=== PATIENT | female | born 1950 | race Caucasian/White ===

== ENCOUNTER 2018-04-18 10:32 | Inpatient (IN) | payer BC, MEDICARE ==
[~2018-04-18 10:32] MED LIST: MORPHINE SULFATE 15 MG TABLET.SA PO PRN; ROPIVACAINE HCL/PF 100 MG, EPINEPHrine 0.2 MG, KETOROLAC TROMETHAMINE 30 MG in NORMAL S... IJ PRN; TRANEXAMIC ACID 1,000 MG in NORMAL SALINE 100 ML IV PRN; ceFAZolin SODIUM 1 GM VIAL IV PRN
[2018-04-18] MEDS: RINGER'S SOLUTION,LACTATED 1,000 ML IV PRN ×2 (11:30→13:21)
--- NOTE | 2018-04-18 11:42 | ANES ---
Anesthesia Pre Procedure Eval Vitals/Labs: Last Vital Signs Temp 36.9 C 04/18/18 10:47 Pulse 81 04/18/18 10:47 Resp 16 04/18/18 10:47 BP 174/75 H 04/18/18 10:47 Pulse Ox 96 04/18/18 10:47 HOME MEDICATIONS Felodipine [Felodipine ER] 10 mg PO HS 08/14/14 [Last Taken Unknown] Venlafaxine HCl [Effexor Xr] 75 mg PO DAILY 08/14/14 [Last Taken Unknown] LORazepam [Ativan] 0.5 mg PO DAILY 10/11/17 [Last Taken Unknown] irbesartan 300 mg tablet 300 mg PO DAILY 02/24/18 [Last Taken 04/18/18 07:00] multivitamin tablet 1 tab PO DAILY 02/24/18 [Last Taken Unknown] spironolactone 25 mg tablet 25 mg PO DAILY 02/24/18 [Last Taken Unknown] venlafaxine ER 150 mg capsule,extended release 24 hr 150 mg PO DAILY 02/24/18 [Last Taken Unknown] esomeprazole magnesium 40 mg capsule,delayed release 40 mg PO DAILY #90 cap 04/12/18 [Last Taken 04/18/18 07:00] [place]-3 Fatty Acids/Fish Oil [Fish Oil 1,000 mg Capsule] 1 each PO DAILY 04/18/18 [Last Taken Unknown] Allergies/Adverse Reactions: Allergies Allergy/AdvReac Type Severity Reaction Status Date / Time No Known Allergies Allergy Verified 04/11/18 14:50 - Planned Procedure Planned Procedure: Arthroplasty Total Hip Left Medication List Reviewed:: Yes Allergies Verified: Yes Medical History (Last Reviewed 04/18/18 @ 11:36 by Hieu Bartlett CRNA) Anxiety and depression Onset Date: Unknown DDD (degenerative disc disease), lumbar Onset Date: Unknown GERD (gastroesophageal reflux disease) Onset Date: Unknown Hip pain Onset Date: ~01/2018 left Hypertension Onset Date: 1997 ELO treated with BiPAP Onset Date: 12/30/15 Obesity Onset Date: Unknown Osteoarthritis Onset Date: Unknown Shoulder pain, right Onset Date: Unknown h/o manipulation under anesthesia Onset Date: 05/22/14 left knee Surgical History (Last Reviewed 04/18/18 @ 11:36 by Hieu Bartlett CRNA) History of right knee joint replacement H/O colonoscopy Onset Date: Unknown Waqas H/O total knee replacement Onset Date: ~201403/18/15 left knee Claudette 2006 right Philip History of gastric surgery Onset Date: ~10/2016 excision of nonmalignant tumor S/P ATILIO (total abdominal hysterectomy) Onset Date: 1983 + RSO (endometriosis) Family History (Last Reviewed 04/18/18 @ 11:36 by Hieu Bartlett CRNA) Father CHF (congestive heart failure) Mother TIA (transient ischemic attack) PE (pulmonary thromboembolism) - Family Anesthesia History Family History:: no untoward family reactions to anesthesia, no familial bleeding tendencies, no family history of clotting disorders, no family history of premature - Airway/Neck/Teeth Within Normal Limits:: Yes Teeth Condition: intact Neck Exam: full range of motion - small os Mallampatti Score: 3 Thyromental (T-M) distance: > 6 cm Mandibulo Hyoid distance: > 3 cm - Respiratory Respiratory History: sleep apnea, CPAP/BiPAP home use Respiratory Physical: lungs clear Smoking Status: Former smoker - quit 82 Discussed smoking cessation including day of surgery: No Sleep Apnea currently treated: Yes Sleep Apnea by current assessment: Yes Discussed Risks/Treatment of ELO: Yes - Cardiovascular Cardiac History: hypertension Tolerate Activity: Fair Heart Sounds: S1 & S2, Regular - Anesthesia Assessment and Plan ASA Class: PS, II Anesthesia Type Plan: General ET Planned difficult intubation/equipment available: Yes
[2018-04-18] MEDS ORDERED: ZOLPIDEM TARTRATE 5 MG TABLET PO PRN (14:27)
[2018-04-18] MEDS ORDERED: MAG HYDROX/ALUMINUM HYD/SIMETH 30 ML UDC PO PRN (14:27)
[2018-04-18] MEDS ORDERED: MAGNESIUM HYDROXIDE 30 ML UDC PO PRN (14:27)
[2018-04-18] MEDS ORDERED: diphenhydrAMINE HCL 50 MG/ML VIAL IV PRN (14:27)
[2018-04-18] MEDS ORDERED: MORPHINE SULFATE 2 MG/ML DISP.SYRIN IV PRN (14:27)
[2018-04-18] MEDS ORDERED: ONDANSETRON HCL/PF 2 MG/ML VIAL IV PRN (14:27)
[2018-04-18] MEDS ORDERED: ACETAMINOPHEN 500 MG TABLET PO PRN (14:27)
--- NOTE | 2018-04-18 14:32 | OR ---
Operative Report - Dictated Report Narrative: Date: 04/18/2018 Preoperative diagnosis: Left hip degenerative joint disease. Postoperative diagnosis: Left hip degenerative joint disease. Procedure: Left Total hip arthroplasty. Surgeon: Moy Wilkins M.D. Cloth Reeler: Lefty Green PA-C (provided an essential set of skilled, educated and assisted with transfer, positioning, prepping, draping, manipulation, traction, irrigation, suturing, and placement of dressings all of which cannot be performed by the available surgical crew) Anesthesia: General and local periarticular joint injection. Complications: None Specimens: Bone for disposal. Estimated blood loss: 250 milliliters. Retained implants: Depuy [place] size 5 femoral stem standard offset. Size 54 millimeter outside diameter 3-hole [place] Gription acetabular cup. 54 millimeter outside by 36 millimeter inside diameter highly cross-linked acetabular liner. 36 millimeter diameter +12 millimeter ceramic femoral head. Cancellous 6.5mm screw 30 millimeter length Indications: Mrs. Sky is a 67-year-old female who has had long-standing left hip pain and arthrosis. This patient was followed in my clinic for period of time with significant complaints of left hip pain consistent with arthritic changes. She failed conservative measures including but not limited to activity modification, passage of time, medications, and other conservative measures. Patient wished to proceed with surgical treatment. The risks, benefits, and alternatives were discussed in clinic. The risks of , blood clots, bleeding, infection, nerve/tendon blood vessel/ injury, malposition of components, dislocation and/or instability of joint, intraoperative fracture, postoperative limited range of motion, persistent pain, failure of components, and need for additional procedures. Patient wished to proceed. Consent was obtained after answering all questions. Procedure: After marking the correct extremity on the floor, the patient was taken to the operating room. A timeout was performed. IV antibiotics consisting of Ancef were administered prior to the procedure. A general was induced by anesthesia. A Arciniega catheter was inserted. The patient was then transitioned to a lateral position on a well-padded pegboard. An axillary roll was placed. The head was in neutral position. The non-operative down leg was well-padded with SCD and CHRISTIANO hose in place. The arms were supported and padded to protect from any undue pressure on the bony prominences and nerves. A well- padded anterior and posterior pelvic and chest posts were secured in order to maintain a stable position of the pelvis. This was placed so that the pelvis was perpendicular to the floor. The body was in line with the pelvis. Once it was felt that we had protected all the bony prominences and the patient was well secured with a safety belt as well, the leg was pre-scrubbed with alcohol, prepped and draped in a standard sterile fashion. A standard anterior lateral hip incision was marked out over the greater trochanter. [place] drapes were then placed. The skin incision was then made. Sharp dissection with a scalpel utilizing cautery for hemostasis was carried out down to the gluteus and iliotibial band fascia. This was split in line with the skin incision. The greater trochanter bursa was excised. The anterior and posterior margins of the abductor tendon were identified. The anterior 1/2-1/3 of the tendon was tagged and reflected off the greater trochanter leaving a sleeve of tendon for repair at the completion of the case. This exposed the underlying hip joint capsule. A limb length stitch was placed in the skin and referencedd off a shannen on the greater trochanter for evaluation of intraoperative limb lengths. An inverted T-type capsulotomy was made extending this up to the brim of the acetabulum. Using Homans to assist with elevation of the soft tissues off the anterior, superior, and inferior aspects of the femoral neck, the hip was then placed in a figure 4 position and the femoral head was dislocated. With the leg in an externally rotated and adducted position, the cutting flag was utilized in order to shannen for a standard femoral neck cut approximately a fingerbreadth above the level of the lesser trochanter. This was done with reference to pre-operative films and overall alignment. This was done while protecting the surrounding soft tissues with Homans. The femoral head was then removed and sized for guidance on preparation of the acetabulum. It was noted that there was loss of articular cartilage on both the femoral head and weightbearing portions of the acetabulum. We then returned the leg to the table and turned our attention to the acetabulum. While protecting the surrounding soft tissues, the labrum and remaining tissue in the fovea were excised using a scalpel and cautery. A series of reamers up t o size 54 millimeter were utilized to prepare the acetabulum. The final reamer had good purchase and exposed the bleeding subchondral bone. The acetabulum was then thoroughly irrigated ensuring that all bony and cartilaginous materials were removed, and the final acetabular shell was impacted into place. This was placed in approximately 45 degrees of abduction and 20 degrees of anteversion utilizing the outrigger and body axis for alignment. This had a good press fit. 1 6.5mm cancellous screw was placed in the superior posterior quadrant of the acetabulum. The shell was then thoroughly irrigated and the final polyethylene was impacted into place ensuring that it seated completely. This was then protected with a sponge while we returned our attention to the femur. With the leg in a figure 4 position, utilizing Homans for soft tissue protection, a box cutting osteotome, followed by Charnley awl, followed by serial reamers and broaches were utilized in order to prepare the femur. It was found that a size 5 broach gave good axial and rotational stability. The calcar reamer was utilized in order to clean up the cut edges. The proximal femur was visualized to ensure that there were no signs of fracture. A series of heads and necks were trialed. It was found that a standard offset neck and a + 12 femoral head gave good overall stability. There was minimal longitudinal in stability. With the leg in the position of sleep, the femoral head was well covered. Hip range of motion was able to reach full extension and external rotation to greater than 75 degrees prior to impingement along the posterior acetabulum. The hip was able to be flexed to greater than 90 degrees with internal rotation greater than 60 degrees prior to anterior impingement. The limb lengths were near equal based on comparison to the contralateral side and the prior placed limb length stitch. At this point it was felt these were the appropriately sized femoral components as well as neck and femoral head. The trial implants were removed. The femur was thoroughly irrigated. The final implants were impacted into place, and the hip was reduced. After ensuring that there was no damage to the proximal femur, the standard periarticular joint injection of ropivacaine, Toradol, and epinephrine were injected into the joint capsule and surrounding soft tissues. Anesthesia then administered intravenous tranexamic acid. The capsule was repaired with a single interrupted #1 Vicryl. The abductor tendon was repaired to the greater trochanter utilizing #5 [place] through drill holes. This was oversewn with #1 Vicryl. The fascia was closed with interrupted #1 Vicryl. The wounds were thoroughly irrigated as we closed in layers. The deep and subcutaneous fat layers were closed with 0 and 3-0 Vicryl respectively. The subcutaneous tissue was closed with a running 3-0 Vicryl and the skin with suleman. All sponge, needle, blade, and instrument counts were correct prior to closing the wounds. Sterile dressings consisting of Xeroform, 4 x 4's, and tape were applied. The patient was awoken and transferred to her hospital bed and then to the postanesthesia care unit in stable condition. Postoperative condition: The plan is to admit to the medical/surgical inpatient floor postoperatively. There will be a projected 1 to 3 day hospital stay. Postoperatively 24 hours of IV antibiotics, pain control, physical therapy, occupational therapy, and medical comanagement will be utilized. Patient will be weightbearing as tolerated with anterior hip precautions. Postoperative fi lms will be obtained in the recovery room.
--- NOTE | 2018-04-18 14:52 | ANES ---
Post Anesthesia Discharge - Transfer of Care Transfer of Care handoff given to nurse: Yes - Discharge from PACU Discharge from PACU when meets criteria: Yes - Comfortable in PACU.
[2018-04-18] MEDS ORDERED: HYDROmorphone HCL 1 MG/ML DISP.SYRIN IV PRN (15:08)
[2018-04-18] MEDS ORDERED: DILTIAZEM HCL 5 MG/ML VIAL IV ONE (15:51)
[2018-04-18] MEDS ORDERED: METOPROLOL TARTRATE 25 MG TABLET PO SCH (16:00)
[2018-04-18] MEDS: KETOROLAC TROMETHAMINE 15 MG/ML VIAL IV SCH ×2 (16:22→21:28)
[2018-04-18] MEDS: ceFAZolin SODIUM 1 GM in DEXTROSE 5 % IN WATER 100 ML IV SCH ×4 (16:32→21:29)
[2018-04-18] MEDS: DEXTROSE 5%-LACTATED RINGERS 1,000 ML IV PRN (16:33)
--- NOTE | 2018-04-18 16:36 | PN ---
Subjective - Date and Time Seen Date: 04/18/18 Time: 16:21 Subjective Narrative: I was called by Hieu Bartlett with anesthesia, because Nancy was in afib with RVR while in the PACU. She was in sinus rhythm during her surgery, and for several minutes afterwards, but flipped into afib with a rate up to 130. She was administered 5 mg lopressor, and her rate improved to the 110's for a few minutes, but then increased again to the 130's. While the cardizem was getting prepared, she converted to a regular rhythm with a rate in the 80's. She was assessed in the PACU. Objective - Review of Systems Generalized/Overall Review: Denies: Fever Respiratory: Denies: Cough Cardiac: Denies: Chest Pain, Edema Abdominal: Denies: Nausea - Vitals Vitals: Last Vital Signs Temp 36.5 C 04/18/18 16:10 Pulse 86 04/18/18 16:10 Resp 9 L 04/18/18 16:10 BP 135/63 04/18/18 16:10 Pulse Ox 94 04/18/18 16:10 - EKG/Xray Findings EKG: atrial fibrillation EKG read: Reviewed by me - Exam Constitutional: Present: Alert - drowsy post op Respiratory: Present: normal breath sounds, no respiratory distress Cardiovascular/Chest: Present: regular rate, rhythm - HR88 Cauti Physician Documentation - Urinary Catheter Management Urethral (Arciniega) Date of Insertion: 04/18/18 Time of Insertion: 12:10 Assessment/Plan - Problems/Diagnosis (1) Atrial fibrillation with RVR Problem: Resolved Narrative: Patient had a very brief episode post op, likely anesthesia related. Records review earlier today did not reveal previous episodes of dysrhythmias. Received 5 mg IV lopressor, and converted to NSR on the monitor, but confirmation EKG pending. Will administer 25 mg metoprolol tartrate bid, and reassess the need for rate control at follow up visit. Anticoagulation not needed since the episode was so brief.
--- NOTE | 2018-04-18 17:34 | ANES ---
Post Anesthesia Assessment - Vital Signs Vitals: Last Vital Signs Temp 36.3 C 04/18/18 16:46 Pulse 85 04/18/18 17:16 Resp 16 04/18/18 17:16 BP 151/77 H 04/18/18 17:16 Pulse Ox 94 04/18/18 17:16 Airway Patency: Normal - Mental Status Level Of Consciousness: Awake, Alert, Appropriate - Pain Level Pain Score: 4 - N/V Assessment Nausea/Vomiting Presence: None Dehydration:: No - Additional Notes Comments:: Had developed Afib in PACU which converted to SR rate 80s. Given Metoprolol PO in PACU and discharde to her room on telemetry. Dr Parks in consult during this period.
[2018-04-18] MEDS: oxyCODONE HCL/ACETAMINOPHEN 1 TAB TABLET PO PRN ×2 (18:00→23:49)
[2018-04-18] MEDS ORDERED: SENNOSIDES/DOCUSATE SODIUM 1 TAB TABLET PO SCH (21:00)
[2018-04-18] MEDS ORDERED: FELODIPINE 5 MG TAB.SR.24H PO SCH (21:00)
[2018-04-18] MEDS: MORPHINE SULFATE 15 MG TABLET.SA PO SCH (21:28)
[2018-04-19] MEDS: DEXTROSE 5%-LACTATED RINGERS 1,000 ML IV PRN (01:38)
[2018-04-19] MEDS: KETOROLAC TROMETHAMINE 15 MG/ML VIAL IV SCH ×2 (02:20→09:11)
[2018-04-19] MEDS: ceFAZolin SODIUM 1 GM in DEXTROSE 5 % IN WATER 100 ML IV SCH ×2 (03:44)
[2018-04-19 06:05] LABS: Hematocrit 37.1 % (37.0-47.0); Hemoglobin 11.8 gm/dL (12.5-16.0); Mean Cell Volume 88.8 fl (78-100); Mean Corpuscular Hemoglobin 28.2 pg (27-31); Mean Corpuscular Hgb Conc 31.8 g/dl (32-36); Mean Platelet Volume 9.5 fl (8-12.5); Platelet Count 308 K/mm3 (150-450); Red Blood Count 4.18 M/mm3 (4.2-5.4); Red Cell Distribution Width 14.7 % (11.5-14.0); White Blood Count 15.3 K/mm3 (4.0-10.5)
[2018-04-19 06:08] LABS: Anion Gap 8.5 mmol/L (6.8-13.8); BUN/Creatinine Ratio 19.2 (9.0-21.6); Calcium * 8.7 mg/dL (7.9-10.9); Carbon Dioxide 32.1 mmol/L (24-32.6); Estimated Creat Clear 72.5; Potassium 3.6 mmol/L (3.4-4.6)
[2018-04-19] MEDS ORDERED: PANTOPRAZOLE SODIUM 40 MG TABLET.EC PO SCH (07:00)
[2018-04-19] MEDS: oxyCODONE HCL/ACETAMINOPHEN 1 TAB TABLET PO PRN (07:12)
--- NOTE | 2018-04-19 07:56 | PN ---
Subjective - Date and Time Seen Date: 04/19/18 Time: 07:51 Subjective Narrative: Nursing reports no further episodes of afib, and she is doing well. She reports feeling fine, and feels well enough to go home. States she only uses xanax qhs, and has not used ambien. Objective - Review of Systems Generalized/Overall Review: Reports: No Symptoms Reported Cardiac: Denies: Chest Pain, Palpitations Abdominal: Denies: Nausea - Vitals Vitals: Last Vital Signs Temp 36.4 C 04/19/18 06:54 Pulse 95 04/19/18 06:54 Resp 16 04/19/18 06:54 BP 148/64 04/19/18 06:54 Pulse Ox 95 04/19/18 06:54 - Abnormal Lab Findings Abnormal Lab Findings: Abnormal Lab Results 04/19/18 04/19/18 Range/Units 05:00 05:00 WBC 15.3 H (4.0-10.5) K/mm3 RBC 4.18 L (4.2-5.4) M/mm3 Hgb 11.8 L (12.5-16.0) gm/dL MCHC 31.8 L (32-36) g/dl RDW 14.7 H (11.5-14.0) % Random Glucose 113 H (70-110) mg/dL - EKG/Xray Findings EKG: NSR EKG read: Reviewed by me - Exam Constitutional: Present: Alert, Oriented x3, Cooperative, No distress Respiratory: Present: lungs clear, normal breath sounds Cardiovascular/Chest: Present: regular rate, rhythm Cauti Physician Documentation - Urinary Catheter Management Urethral (Arciniega) Date of Insertion: 04/18/18 Time of Insertion: 12:10 Assessment/Plan - Problems/Diagnosis (1) Atrial fibrillation with RVR Problem: Resolved Narrative: She had one brief episode of afib with RVR in the PACU, and converted. She had been given 5 mg lopressor, and converted several minutes later. Whether she converted on her own or due to the medication is unknown. Afib has not recurred overnight. She was started on 25 mg metoprolol tartrate bid, and will continue until I see her in follow up in approximately 3-4 weeks. Anticoagulation not needed since the episode was so brief. Likely secondary to surgery and anesthesia.
[2018-04-19] MEDS ORDERED: LOSARTAN POTASSIUM 50 MG TABLET PO SCH (09:00)
[2018-04-19] MEDS ORDERED: MULTIVITAMINS 1 CAP CAPSULE PO SCH (09:00)
[2018-04-19] MEDS ORDERED: OMEGA-3 FATTY ACIDS 1 CAP CAPSULE PO SCH (09:00)
[2018-04-19] MEDS ORDERED: LORazepam 0.5 MG TABLET PO SCH (09:00)
[2018-04-19] MEDS ORDERED: METOPROLOL TARTRATE 25 MG TABLET PO SCH (09:00)
[2018-04-19] MEDS ORDERED: VENLAFAXINE HCL 37.5 MG CAP.SR.24H PO SCH (09:00)
[2018-04-19] MEDS ORDERED: SPIRONOLACTONE 25 MG TABLET PO SCH (09:00)
[2018-04-19] MEDS ORDERED: VENLAFAXINE HCL 150 MG CAP.SR.24H PO SCH (09:00)
[2018-04-19] MEDS: MORPHINE SULFATE 15 MG TABLET.SA PO SCH (09:09)
--- NOTE | 2018-04-19 12:02 | DS ---
(1) Status post total hip replacement, left Problem: Acute (2) Atrial fibrillation with RVR Problem: Resolved (3) Acute blood loss anemia Problem: Acute (4) GERD (gastroesophageal reflux disease) Problem: Chronic (5) Anxiety Problem: Chronic (6) Hyperlipemia Problem: Chronic Description of Stay: Mrs. Sky was admitted to the floor after undergoing left total hip arthroplasty. Tolerated this well. In the post operative recovery room she developed atrial fibrillation which resolved with medication and observation. She did not have any recurrent symptoms. She was followed by her primary care physician who placed her on metoprolol and was okay with her being monitored without full anticoagulation. Was admitted to the floor postoperatively for 24 hours of IV antibiotics, pain control, medical comanagement, and occupational and physical therapy. OT and PT were consulted to assist with activities of daily living and ambulation. Was made weightbearing as tolerated with anterior hip precautions. Pain was initially controlled with IV regimen. This was transitioned to oral once tolerating a by mouth intake. Was resumed on home diet and medications. Had a Arciniega catheter inserted and the operating room which was discontinued on postoperative day 1. Lovenox SCD and CHRISTIANO hose were utilized for DVT prophylaxis. Vital signs remained stable to the hospital course. Serial labs were obtained which showed a final hemoglobin of 11.8 grams. BMP was reviewed and was stable. Physical examination throughout the hospital course showed an extremity that had sensation that was intact to light touch, palpable pulses, a benign wound, motor intact to the toes, ankle, and knee. Once an oral pain regimen was tolerated and physical therapy goals were met, it was felt that they were stable for discharge to home. Instructions: Continue with weightbearing as tolerated and anterior hip precautions. Do not bathe or soak the wound. If there is any drainage from the wound keep the wound clean and dry and cover with dry gauze and tape. Change every 2-3 days as needed if there is any drainage. Cover wound while showering. Continue with physical therapy. Resume home diet. Report any fever over 101.5 Fahrenheit, uncontrolled pain, increased drainage, foul odor of drainage, new or increased calf pain or shortness of breath, or any other significant complaints. A 325mg dialy aspirin will be started after finishing anticoagulation if not allergic. Continue with CHRISTIANO hose on the operative extremity until instructed otherwise. No driving until instructed otherwise. Follow up in approximately 10-14 days. Procedures Performed: see notes below List Procedures: Left total hip arthroplasty, EKG Results and Findings: Lab Pending Results 04/19/18 05:00: WBC 15.3 H, RBC 4.18 L, Hgb 11.8 L, Hct 37.1, MCV 88.8, MCH 28.2, MCHC 31.8 L, RDW 14.7 H, Plt Count 308, MPV 9.5 04/19/18 05:00: Sodium 140, Plasma Sodium 140, Potassium 3.6, Chloride 103, Carbon Dioxide 32.1, Anion Gap 8.5, BUN 14, Creatinine 0.73, Est GFR (Non-Af Amer) 85, BUN/Creatinine Ratio 19.2, Random Glucose 113 H, Calcium 8.7 Discharge Location: Home Disposition: Home self-care Condition: Good Discharge Activity: Weight bearing, Other - anterior hip precautions no active abduction Discharge Diet: General/regular food Referrals: Jessica Parks DO [Primary Care Provider] - Additional Patient Instructions (free text): Physical Therapy at [facility] in [place] on April 21 at 1:00pm. Please fax PT order to them at [phone]. Follow up Orthopedic Dr Claudette neff on May at 10:45am. Prescriptions (Any new or edited meds): Enoxaparin Sodium [Lovenox] 40 mg SC Q24H #7 disp.syrin Metoprolol Tartrate [Lopressor] 25 mg PO BID #60 tablet Morphine Sulfate [Ms Contin] 15 mg PO Q12H #10 tablet.sa oxyCODONE HCL/ACETAMINOPHEN [Percocet 5 MG/325 MG] 2 tab PO Q4H PRN #60 tab PRN Reason: Moderate Pain (Pain Scale 4-6) Sennosides/Docusate Sodium [Senokot-S] 2 tab PO HS #60 tablet Complete Home Medications List: Complete Home Medication List: Felodipine [Felodipine ER] 10 mg PO HS 08/14/14 Venlafaxine HCl [Effexor Xr] 75 mg PO DAILY 08/14/14 LORazepam [Ativan] 0.5 mg PO DAILY 10/11/17 irbesartan 300 mg tablet 300 mg PO DAILY 02/24/18 multivitamin tablet 1 tab PO DAILY 02/24/18 spironolactone 25 mg tablet 25 mg PO DAILY 02/24/18 venlafaxine ER 150 mg capsule,extended release 24 hr 150 mg PO DAILY 02/24/18 esomeprazole magnesium 40 mg capsule,delayed release 40 mg PO DAILY #90 cap 04/12/18 [place]-3 Fatty Acids/Fish Oil [Fish Oil 1,000 mg Capsule] 1 each PO DAILY 04/18/18 Enoxaparin Sodium [Lovenox] 40 mg SC Q24H #7 disp.syrin 04/19/18 Metoprolol Tartrate [Lopressor] 25 mg PO BID #60 tablet 04/19/18 Morphine Sulfate [Ms Contin] 15 mg PO Q12H #10 tablet.sa 04/19/18 Sennosides/Docusate Sodium [Senokot-S] 2 tab PO HS #60 tablet 04/19/18 oxyCODONE HCL/ACETAMINOPHEN [Percocet 5 MG/325 MG] 2 tab PO Q4H PRN #60 tab 04/19/18
[2018-04-19 13:02] VITALS: BP 167/80
[2018-04-19] MEDS ORDERED: ENOXAPARIN SODIUM 40 MG/0.4 ML SYRG SC SCH (13:27)
== END 2018-04-19 13:15 | disposition home or self-care (01) | DRG 470 ==
LOC: MS 10:32
PROVIDERS: ADMIT Orthopaedic Surgery; ATTEND Orthopaedic Surgery
CPT/HCPCS: 36415; 73502; 80048; 85027; 90686; 93005; 94660; 97161; 97166; 97535

== ENCOUNTER 2018-05-23 15:42 | Inpatient (IN) ==
[2018-05-23] MEDS ORDERED: NITROGLYCERIN 0.4 MG/TAB BTL SL ONE ×3 (17:02→18:41)
[2018-05-23] MEDS ORDERED: ASPIRIN 81 MG TAB.CHEW PO ONE (17:02)
[2018-05-23] MEDS ORDERED: DILTIAZEM HCL 5 MG/ML VIAL IV ONE ×2 (17:03→18:40)
[2018-05-23 17:11] LABS: Hematocrit 41.2 % (37.0-47.0); Mean Cell Volume 85.8 fl (78-100); Mean Corpuscular Hemoglobin 27.1 pg (27-31); Mean Corpuscular Hgb Conc 31.6 g/dl (32-36); Mean Platelet Volume 9.8 fl (8-12.5); Neutrophil # 8.6 K/mm3 (1.3-6.0); Neutrophil % 68.6 % (42-75.0); Platelet Count 357 K/mm3 (150-450); Red Cell Distribution Width 14.4 % (11.5-14.0); White Blood Count 12.5 K/mm3 (4.0-10.5)
--- NOTE | 2018-05-23 17:12 | ERNOTE ---
<Mary Olivarez - Last Filed: 05/23/18 20:28> Abdominal HPI - General Chief Complaint: Abdominal Pain Time Seen by Provider: 05/23/18 16:55 Source: patient Exam Limitations: no limitations - Immun/Allergies/Home Medications Immunizatons: IMMUNIZATION HX Immunizations Up to Date Yes History of Influenza Vaccine Yes Hx Pneumococcal Vaccination No Allergies/Adverse Reactions: Allergies No Known Allergies Allergy (Verified 05/23/18 23:55) Home Medications: HOME MEDICATIONS Felodipine [Felodipine ER] 10 mg PO HS 08/14/14 [Last Taken Unknown] Venlafaxine HCl [Effexor Xr] 75 mg PO DAILY 08/14/14 [Last Taken Unknown] irbesartan 300 mg tablet 300 mg PO DAILY 02/24/18 [Last Taken 04/18/18 07:00] multivitamin tablet 1 tab PO DAILY 02/24/18 [Last Taken Unknown] spironolactone 25 mg tablet 25 mg PO DAILY 02/24/18 [Last Taken Unknown] venlafaxine ER 150 mg capsule,extended release 24 hr 150 mg PO DAILY 02/24/18 [Last Taken Unknown] esomeprazole magnesium 40 mg capsule,delayed release 40 mg PO DAILY #90 cap 04/12/18 [Last Taken 04/18/18 07:00] [place]-3 Fatty Acids/Fish Oil [Fish Oil 1,000 mg Capsule] 1 ea PO DAILY 04/18/18 [Last Taken Unknown] Metoprolol Tartrate [Lopressor] 25 mg PO BID #60 tab 04/19/18 [Last Taken Unknown] Alprazolam [Xanax] 0.25 mg PO PRN PRN 05/23/18 [Last Taken Unknown] Aspirin 325 mg PO QAM 05/23/18 [Last Taken Unknown] - History of Present Illness Narrative: Patient had a hip replacement on 04/18/18. According to her friend she had two episodes of atrial fibrillation while in recovery, was on lovenox for 7 days, on [id number] since. Over the last three weeks she has had intermittent episodes of central chest pressure that usually lasted about an hour and seem to resolve with nexium. Since last night she has had symptoms that have not quit, doesn't feel palpitations, shortness of breath with exertion only. She quit the ASA a week ago since she thought it might be causing the symptoms Date (Duration): 05/22/18 Time (Timing): 19:00 Timing: constant Quality: moderate Activities at Onset: none Associated Symptoms: Present: shortness of breath Prior Treatment: Absent: currently on antibiotics Review of Systems - Review of Systems Constitutional: Present: recent illness - surgery. Absent: fever Respiratory: Present: See HPI, shortness of breath. Absent: cough Cardiology: Present: See HPI, chest pain Gastrointestinal/Abdominal: Present: nausea, diarrhea - twice last night. Absent: vomiting Genitourinary: Present: no symptoms reported Skin: Absent: rash Neurological: Absent: headache Medical History (Last Reviewed 05/23/18 @ 18:09 by Mary Olivarez MD) Anxiety and depression Onset Date: Unknown DDD (degenerative disc disease), lumbar Onset Date: Unknown GERD (gastroesophageal reflux disease) Onset Date: Unknown Hip pain Onset Date: ~01/2018 left Hypertension Onset Date: 1997 ELO treated with BiPAP Onset Date: 12/30/15 Obesity Onset Date: Unknown Osteoarthritis Onset Date: Unknown Shoulder pain, right Onset Date: Unknown h/o manipulation under anesthesia Onset Date: 05/22/14 left knee Surgical History: Surgical History (Last Reviewed 05/23/18 @ 18:09 by Mary Olivarez MD) Status post total hip replacement, left (Chronic) 04/18/18 [place] H/O colonoscopy Onset Date: Unknown [place] H/O total knee replacement Onset Date: ~201403/18/15 left knee [place] 2006 right [place] History of gastric surgery Onset Date: ~10/2016 excision of nonmalignant tumor History of right knee joint replacement S/P ATILIO (total abdominal hysterectomy) Onset Date: 1983 RSO (endometriosis) History of total left hip arthroplasty Onset Date: ~04/18/18 Dr Wilkins Family History: Family History (Last Reviewed 05/23/18 @ 17:31 by Shima Mc RN) Father CHF (congestive heart failure) Mother TIA (transient ischemic attack) PE (pulmonary thromboembolism) Social History: Preferred Language Samoan Do you have any anabaptist or No cultural preference? Smoking Status Former smoker Abuse History No History of abuse Psych History Hx of Anxiety,Currently on Meds Alcohol Use none Drug Use none (Last Updated 05/05/18 @ 11:54 by Moy Wilkins MD) No Social History Section defined Physical Exam - Physical Exam General Appearance: Present: wd/wn, alert, no apparent distress, obese Respiratory: Present: no respiratory distress, normal breath sounds, no accessory muscle use, chest nontender, lungs clear Cardiovascular/Chest: Present: no murmur, tachycardia, irregularly irregular Gastrointestinal/Abdominal: Present: normal bowel sounds, nondistended, soft, tenderness - epigastric Extremity Exam: Present: no edema Neurological Exam: Present: alert, oriented, normal mood/affect Skin Exam: Present: normal color, warm/dry Progress - Results and Orders Patient's Lab Results:: I have reviewed the patient's lab results. - Vital Signs Patient's Vital Signs:: I have reviewed the patient's vital signs. Vital Signs: Vital Signs 05/23/18 16:11 05/23/18 16:52 Temperature 35.5 C L Pulse Rate 122 H 163 H Respiratory Rate 16 13 Blood Pressure 161/124 H 191/91 H O2 Sat by Pulse Oximetry 94 - EKG EKG #1 EKG: QRS - HR 138, nonspecific ST T wave changes EKG read: Interp. by me - X-Ray X-Ray #1 X-Ray: chest - hyperinflated, no acute changes Interpretation: Interp. by me - CT/Ultrasound CT/Ultrasound Narrative: CTA: IMPRESSION: NO EVIDENCE FOR PULMONARY EMBOLISM OR ACUTE INTRATHORACIC ABNORMALITY IDENTIFIED. - Progress/Reassessment Chief Complaint: Abdominal Pain Progress Note-Subjective: 05/23/18 17:35 pain 4/10 after first nitro after cardizem 25mg HR 98-105 05/23/18 18:42 patient states that chest pressure went down to 3/10 after 2nd nitro, then up to 7/10 when going to CXR discussed d-dimer and other abnormal labs, HR up to 120-130's will get CTA and repeat dose of cardizem 05/23/18 19:35 discussed CTA results with patient discussed elevated LFts consistent with biliary obstruction, will get ultrasound patient will need pain medication prior to exam, will give toradol rather than morphine to avoid gallbladder contraction HR down to 100-110 after second dose of cardizem - Transfer of Care Physician Sign Out: Mary Olivarez Receiving Physician: Torres Grant Pending Results: CT/MRI results Expected Disposition: Transfer Departure Clinical Impression: Pancreatitis Atrial fibrillation Qualifiers: Atrial fibrillation type: paroxysmal Qualified Code(s): I48.0 - Paroxysmal atrial fibrillation - Departure Disposition: Still a patient Condition: Stable <Torres Grant - Last Filed: 05/24/18 01:25> Abdominal HPI - Narrative Date of Service: 05/23/18 - Immun/Allergies/Home Medications Immunizatons: IMMUNIZATION HX Immunizations Up to Date Yes History of Influenza Vaccine Yes Hx Pneumococcal Vaccination No Medical History (Last Reviewed 05/23/18 @ 18:09 by Mary Olivarez MD) Anxiety and depression Onset Date: Unknown DDD (degenerative disc disease), lumbar Onset Date: Unknown GERD (gastroesophageal reflux disease) Onset Date: Unknown Hip pain Onset Date: ~01/2018 left Hypertension Onset Date: 1997 ELO treated with BiPAP Onset Date: 12/30/15 Obesity Onset Date: Unknown Osteoarthritis Onset Date: Unknown Shoulder pain, right Onset Date: Unknown h/o manipulation under anesthesia Onset Date: 05/22/14 left knee Surgical History: Surgical History (Last Reviewed 05/23/18 @ 18:09 by Mary Olivarez MD) Status post total hip replacement, left (Chronic) 04/18/18 [place] H/O colonoscopy Onset Date: Unknown [place] H/O total knee replacement Onset Date: ~201403/18/15 left knee [place] 2006 right [place] History of gastric surgery Onset Date: ~10/2016 excision of nonmalignant tumor History of right knee joint replacement S/P ATILIO (total abdominal hysterectomy) Onset Date: 1983 + RSO (endometriosis) History of total left hip arthroplasty Onset Date: ~04/18/18 Dr Wilkins Family History: Family History (Last Updated 05/23/18 @ 23:55 by Iris Coleman RN) Father CHF (congestive heart failure) Mother PE (pulmonary thromboembolism) TIA (transient ischemic attack) Brother A-fib Social History: Preferred Language Samoan Do you have any anabaptist or No cultural preference? Smoking Status Former smoker Abuse History No History of abuse Psych History Hx of Anxiety,Currently on Meds Alcohol Use none Drug Use none (Last Updated 05/05/18 @ 11:54 by Moy Wilkins MD) No Social History Section defined Progress - Date and Time Seen: Date and Time: 05/23/18 22:12 Patient was interviewed and examined. She is complaining of epigastric abdominal pressure/pain that she thought was indigestion since yesterday. She has nausea and has not been able to eat. She has diarrhea. She denies fever or vomiting. She has no history of gallstones, alcohol use or elevated lipids. She was initially seen and worked up by Dr. Olivarez. The labs and x-ray results were reviewed. She is in no respiratory distress. Lung sounds are clear. Heart tachycardic. Abdomen is obese and tender in the epigastric region. I spoke with Dr. Zamarripa. He will admit the patient. Orders were written. - Vital Signs Vital Signs: Vital Signs 05/23/18 16:11 05/23/18 16:52 05/23/18 17:07 Temperature 35.5 C L Pulse Rate 122 H 163 H 130 H Respiratory Rate 16 13 14 Blood Pressure 161/124 H 191/91 H 170/85 H O2 Sat by Pulse Oximetry 94 95 05/23/18 17:15 05/23/18 17:16 05/23/18 17:24 Temperature Pulse Rate 138 H 149 H 132 H Respiratory Rate 16 17 Blood Pressure 127/74 148/58 141/82 O2 Sat by Pulse Oximetry 93 93 05/23/18 17:30 05/23/18 17:44 05/23/18 17:45 Temperature Pulse Rate 103 H 107 H 107 H Respiratory Rate 12 15 18 Blood Pressure 143/60 145/85 135/77 O2 Sat by Pulse Oximetry 91 L 92 L 92 L 05/23/18 18:48 05/23/18 19:28 05/23/18 19:40 Temperature Pulse Rate 133 H 105 H 107 H Respiratory Rate 18 18 Blood Pressure 167/90 H 106/76 117/69 O2 Sat by Pulse Oximetry 94 93 05/23/18 21:09 Temperature Pulse Rate 121 H Respiratory Rate Blood Pressure 162/70 H O2 Sat by Pulse Oximetry - CT/Ultrasound CT/Ultrasound Narrative: Exam Date: 05/23/2018 20:07 Ordering Physician: Mary Olivarez MD Indication: Right upper quadrant abdominal pain since yesterday. Elevated LFTs. Technique: US abdomen complete. Standard ultrasound evaluation of the abdomen. Comparison: CT scan of the abdomen and pelvis dated October 02, 2016. Findings: The liver is diffusely fatty infiltrated and diffusely enlarged but without hepatic mass or ductal dilation. The liver measures 21 cm in greatest sagittal dimension. Findings are stable from the prior CT scan. The gallbladder is well distended with normal contour and wall thickness. Gallbladder wall = 0.3 cm. No gallstones or pericholecystic fluid. However there is tenderness over the gallbladder and biliary ducts during the exam. Mild extrahepatic biliary ductal dilation, but this is stable from the prior CT scan. The CHD = 0.6 cm, the proximal CBD = 0.9 cm and the distal CBD = 0.6 cm. The pancreas is normal size and without mass or ductal dilation. The spleen is normal size without mass and measures 10.0 x 4.1 x 3.8 cm. The kidneys are normal size and echotexture and are without mass, nephrolithiasis or hydronephrosis. The right kidney measures 12.1 cm while the left kidney measures 13.1 cm. Portal vein shows normal blood flow towards the liver. Aorta and IVC are grossly normal. IMPRESSION: 1. FATTY HEPATOMEGALY WHICH IS STABLE FROM PRIOR CT SCAN. 2. MILD EXTRAHEPATIC BILIARY DUCTAL DILATION WHICH IS STABLE FROM PRIOR EXAMINATION. 3. MILD RIGHT UPPER QUADRANT TENDERNESS DURING THE EXAMINATION. 4. NO GALLSTONES OR FURTHER EVIDENCE FOR ACUTE CHOLECYSTITIS. Electronically signed by Neto Camacho D.O..
[2018-05-23 17:29] LABS: Prothrombin Time (Patient) 10.1 Seconds (9.0-11.0)
[2018-05-23 17:31] LABS: INR 1.01 INR (0.90-1.10); Partial Thrombolplastin Time 19.6 Seconds (24-32)
[2018-05-23 18:28] LABS: Albumin * 3.5 gm/dl (3.4-5.0); Anion Gap 14.4 mmol/L (6.8-13.8); BUN/Creatinine Ratio 28.8 (9.0-21.6); Blood Urea Nitrogen 17 mg/dL (3-23); Calcium * 9.8 mg/dL (7.9-10.9); Carbon Dioxide 30.1 mmol/L (24-32.6); Chloride 102 mmol/L (97-106); Glucose * 107 mg/dL (70-110); Potassium 3.5 mmol/L (3.4-4.6); Sodium 143 mmol/L (132-142); Total Protein 7.2 gm/dL (6.2-8.2)
[2018-05-23 18:29] LABS: ALT 363 U/L (19-67); AST 261 U/L (0-48); Alkaline Phosphatase * 314 U/L (50-170); Bilirubin, Total 0.4 mg/dL (0.0-1.1); Ca. Corrected For Albumin 9.9 mg/dL (8.4-10.2); Troponin I Less than 0.017 ng/mL (0.00-0.10)
[2018-05-23 19:08] LABS: BNP * 139 pg/mL (5-325)
[2018-05-23 19:09] LABS: Amylase * 430 U/L (25-115)
[2018-05-23] MEDS ORDERED: KETOROLAC TROMETHAMINE 30 MG/ML VIAL IV ONE (19:35)
[2018-05-23 19:48] LABS: Lipase 2830 U/L (73-393)
[2018-05-23] MEDS ORDERED: DILTIAZEM HCL 125 MG in DEXTROSE 5 % IN WATER 100 ML IV PRN ×2 (19:55)
[2018-05-23] MEDS ORDERED: HYDROmorphone HCL 1 MG/ML DISP.SYRIN IV ONE (21:40)
[2018-05-23] MEDS ORDERED: NORMAL SALINE 1,000 ML IV ONE (22:03)
--- NOTE | 2018-05-24 00:51 | HP ---
Chief Complaint - Chief Complaint Date of Service: 05/24/18 Time of Service: 00:39 Chief Complaint: Abdominal pain History of Present Illness: 67-year-old female with a history of anxiety, degenerative disc disease, hypertension, GERD presents to the ER with worsening abdominal pain that started yesterday morning. She was found to have an elevated lipase consistent with pancreatitis. Ultrasound was performed which did not show any stones though she did have a mildly elevated common bile duct as well as fatty hepatomegaly. She had an elevated AST ALT as well as an elevated d-dimer. She does not have a history of heart arrhythmias but was found to be in A. fib with RVR while being worked up for her abdominal pain. CTA of her chest did not show any emboli. She was loaded on Cardizem and placed on a Cardizem drip and adm itted to the ICU, she was made n.p.o. and provided pain medicine. She denies drinking much alcohol, does not have a history of hypertriglyceridemia. She was the cause of her pancreatitis. Medical History (Last Reviewed 05/23/18 @ 23:55 by Iris Coleman RN) Anxiety and depression Onset Date: Unknown DDD (degenerative disc disease), lumbar Onset Date: Unknown GERD (gastroesophageal reflux disease) Onset Date: Unknown Hip pain Onset Date: ~01/2018 left Hypertension Onset Date: 1997 ELO treated with BiPAP Onset Date: 12/30/15 Obesity Onset Date: Unknown Osteoarthritis Onset Date: Unknown Shoulder pain, right Onset Date: Unknown h/o manipulation under anesthesia Onset Date: 05/22/14 left knee Surgical History: Surgical History (Last Reviewed 05/23/18 @ 23:55 by Iris Coleman RN) Status post total hip replacement, left (Chronic) 04/18/18 [place] H/O colonoscopy Onset Date: Unknown [place] H/O total knee replacement Onset Date: ~201403/18/15 left knee [place] 2006 right [place] History of gastric surgery Onset Date: ~10/2016 excision of nonmalignant tumor History of right knee joint replacement S/P ATILIO (total abdominal hysterectomy) Onset Date: 1983 + RSO (endometriosis) History of total left hip arthroplasty Onset Date: ~04/18/18 Dr Wilkins Family History: Family History (Last Updated 05/23/18 @ 23:55 by Iris Coleman RN) Father CHF (congestive heart failure) Mother PE (pulmonary thromboembolism) TIA (transient ischemic attack) Brother A-fib Social History: Preferred Language Mohawk Do you have any pentecostal or No cultural preference? Smoking Status Former smoker Abuse History No History of abuse Psych History Hx of Anxiety,Currently on Meds Alcohol Use none Drug Use none (Last Updated 05/05/18 @ 11:54 by Moy Wilkins MD) No Social History Section defined Review Of Systems (GEN) - Review of Systems Generalized/Overall Review: Absent: Chills, Fever Respiratory: Absent: Cough, Shortness of Breath, Wheezing Cardiac: Present: Palpitations. Absent: Chest Pain, Edema Abdominal: Present: Nausea, Abdominal Pain. Absent: Vomiting Genitourinary: Present: No Symptoms Reported Musculoskeletal: Present: No Symptoms Reported Neurological: Present: No Symptoms Reported Skin: Present: No Symptoms Reported Endocrine: Present: No Symptoms Reported Immunizations: IMMUNIZATION HX Immunizations Up to Date Yes History of Influenza Vaccine Yes Hx Pneumococcal Vaccination No Allergies/Adverse Reactions: Allergies Allergy/AdvReac Type Severity Reaction Status Date / Time No Known Allergies Allergy Verified 05/23/18 23:55 Home Medications: HOME MEDICATIONS Felodipine [Felodipine ER] 10 mg PO HS 08/14/14 [Last Taken Unknown] Venlafaxine HCl [Effexor Xr] 75 mg PO DAILY 08/14/14 [Last Taken Unknown] irbesartan 300 mg tablet 300 mg PO DAILY 02/24/18 [Last Taken 04/18/18 07:00] multivitamin tablet 1 tab PO DAILY 02/24/18 [Last Taken Unknown] spironolactone 25 mg tablet 25 mg PO DAILY 02/24/18 [Last Taken Unknown] venlafaxine ER 150 mg capsule,extended release 24 hr 150 mg PO DAILY 02/24/18 [Last Taken Unknown] esomeprazole magnesium 40 mg capsule,delayed release 40 mg PO DAILY #90 cap 04/12/18 [Last Taken 04/18/18 07:00] [place]-3 Fatty Acids/Fish Oil [Fish Oil 1,000 mg Capsule] 1 ea PO DAILY 04/18/18 [Last Taken Unknown] Metoprolol Tartrate [Lopressor] 25 mg PO BID #60 tab 04/19/18 [Last Taken Unknown] Alprazolam [Xanax] 0.25 mg PO PRN PRN 05/23/18 [Last Taken Unknown] Aspirin 325 mg PO QAM 05/23/18 [Last Taken Unknown] Exam - Exam Vital Signs: Vital Signs - Last Taken Temp 35.5 C L 05/23/18 16:11 Pulse 121 H 05/23/18 21:09 Resp 18 05/23/18 19:40 BP 162/70 H 05/23/18 21:09 Pulse Ox 93 05/23/18 19:40 Constitutional: Present: Alert, Oriented x3, Cooperative, Morbidly obese Eye Exam: bilateral eye: normal inspection, EOMI Neck: Present: non-tender, full range of motion Respiratory: Present: chest non-tender, lungs clear Cardiovascular/Chest: Present: normal peripheral pulses, irregularly irregular Abdomen: Present: soft, tender - Right upper quadrant, positive Nelson sign /Rectal: Present: Exam deferred Skin Exam: Present: normal color, warm/dry Appearance: Present: appropriate appearance, appropriate insight Eye contact: Present: cooperative, good eye contact Thoughts: Present: normal thought pattern, normal mood /affect Diagnostic Studies: Abnormal Lab Results 05/23/18 05/23/18 05/23/18 Range/Units 17:00 17:00 17:00 WBC 12.5 H (4.0-10.5) K/mm3 MCHC 31.6 L (32-36) g/dl RDW 14.4 H (11.5-14.0) % Immature Gran # (Auto) 0.04 H (0.000-0.0310) K/mm3 Neutrophils # 8.6 H (1.3-6.0) K/mm3 PTT ([place]) 19.6 L (24-32) Seconds D-Dimer (0.19-0.49) ug/mL Sodium 143 H (132-142) mmol/L Plasma Sodium 143 H (130-142) mmol/L Anion Gap 14.4 H (6.8-13.8) mmol/L BUN/Creatinine Ratio 28.8 H (9.0-21.6) GGT (4-104) U/L AST 261 H (0-48) U/L ALT 363 H (19-67) U/L Alkaline Phosphatase 314 H (50-170) U/L Amylase (25-115) U/L Lipase (73-393) U/L 05/23/18 05/23/18 Range/Units 17:00 18:35 WBC (4.0-10.5) K/mm3 MCHC (32-36) g/dl RDW (11.5-14.0) % Immature Gran # (Auto) (0.000-0.0310) K/mm3 Neutrophils # (1.3-6.0) K/mm3 PTT ([place]) (24-32) Seconds D-Dimer 6.38 H (0.19-0.49) ug/mL Sodium (132-142) mmol/L Plasma Sodium (130-142) mmol/L Anion Gap (6.8-13.8) mmol/L BUN/Creatinine Ratio (9.0-21.6) GGT 1265 H (4-104) U/L AST (0-48) U/L ALT (19-67) U/L Alkaline Phosphatase (50-170) U/L Amylase 430 H (25-115) U/L Lipase 2830 H (73-393) U/L Laboratory Results WBC 12.5 K/mm3 (4.0-10.5) H 05/23/18 17:00 RBC 4.80 M/mm3 (4.2-5.4) 05/23/18 17:00 Hgb 13.0 gm/dL (12.5-16.0) 05/23/18 17:00 Hct 41.2 % (37.0-47.0) 05/23/18 17:00 MCV 85.8 fl (78-100) 05/23/18 17:00 MCH 27.1 pg (27-31) 05/23/18 17:00 MCHC 31.6 g/dl (32-36) L 05/23/18 17:00 RDW 14.4 % (11.5-14.0) H 05/23/18 17:00 Plt Count 357 K/mm3 (150-450) 05/23/18 17:00 MPV 9.8 fl (8-12.5) 05/23/18 17:00 Immature Gran % (Auto) 0.30 % (0.001-0.429) 05/23/18 17:00 Immature Gran # (Auto) 0.04 K/mm3 (0.000-0.0310) H 05/23/18 17:00 Neutrophils % 68.6 % (42-75.0) 05/23/18 17:00 Lymphocytes % 24.7 % (20-51) 05/23/18 17:00 Monocytes % 4.9 % (0.0-9) 05/23/18 17:00 Eosinophils % 0.9 % (0.0-3.0) 05/23/18 17:00 Basophils % 0.6 % (0.0-1.0) 05/23/18 17:00 Nucleated RBC % 0.0 k/mm3 (0-1) 05/23/18 17:00 Neutrophils # 8.6 K/mm3 (1.3-6.0) H 05/23/18 17:00 Lymphocytes # 3.09 k/mm3 (1.5-3.5) 05/23/18 17:00 Monocytes # 0.6 k/mm3 (0.0-1.0) 05/23/18 17:00 Eosinophils # 0.1 k/mm3 (0.0-0.7) 05/23/18 17:00 Absolute Basophils 0.1 k/mm3 (0.0-0.1) 05/23/18 17:00 PT 10.1 Seconds (9.0-11.0) 05/23/18 17:00 INR (Anticoag Therapy) 1.01 INR (0.90-1.10) 05/23/18 17:00 PTT ([place]) 19.6 Seconds (24-32) L 05/23/18 17:00 D-Dimer 6.38 ug/mL (0.19-0.49) H 05/23/18 17:00 Sodium 143 mmol/L (132-142) H 05/23/18 17:00 Plasma Sodium 143 mmol/L (130-142) H 05/23/18 17:00 Potassium 3.5 mmol/L (3.4-4.6) 05/23/18 17:00 Chloride 102 mmol/L (97-106) 05/23/18 17:00 Carbon Dioxide 30.1 mmol/L (24-32.6) 05/23/18 17:00 Anion Gap 14.4 mmol/L (6.8-13.8) H 05/23/18 17:00 BUN 17 mg/dL (3-23) 05/23/18 17:00 Creatinine 0.59 mg/dL (0.4-1.4) 05/23/18 17:00 Est GFR (Non-Af Amer) 108 mL/min (60-130) D 05/23/18 17:00 BUN/Creatinine Ratio 28.8 (9.0-21.6) H 05/23/18 17:00 Random Glucose 107 mg/dL (70-110) 05/23/18 17:00 Calcium 9.8 mg/dL (7.9-10.9) 05/23/18 17:00 Calcium Adj for Albumin 9.9 mg/dL (8.4-10.2) 05/23/18 17:00 Total Bilirubin 0.4 mg/dL (0.0-1.1) 05/23/18 17:00 GGT 1265 U/L (4-104) H 05/23/18 18:35 AST 261 U/L (0-48) H 05/23/18 17:00 ALT 363 U/L (19-67) H 05/23/18 17:00 Alkaline Phosphatase 314 U/L (50-170) H 05/23/18 17:00 Troponin I Less than 0.017 ng/mL (0.00-0.10) 05/23/18 17:00 B-Natriuretic Peptide 139 pg/mL (5-325) 05/23/18 18:35 Total Protein 7.2 gm/dL (6.2-8.2) 05/23/18 17:00 Albumin 3.5 gm/dl (3.4-5.0) 05/23/18 17:00 Amylase 430 U/L (25-115) H 05/23/18 18:35 Lipase 2830 U/L (73-393) H 05/23/18 18:35 Assessment/Plan - Narrative Narrative: Patient placed in the ICU for atrial fibrillation with rapid ventricular response. She is currently on a Dilaudid drip, dose is 15 mg/h which is maintaining a blood rate under 110. Her blood pressures range anywhere from 150-160/80-90. She denies chest pain, shortness of breath. She received an aspirin in the ER. Will also start her on Lovenox. We will likely put her on a medication like Eliquis if her insurance will pay for it. If not we will place her on Coumadin and bridge with Lovenox until we get an INR between 2 and 3. Will restart her medications as soon as she is no longer n.p.o. for pancreatitis. She cannot eat at this time, but ice chips are okay. She has Dilaudid 1 mg q. 20 minutes as needed order for her which she is getting roughly 1 dose every 1-2 hours. She was comfortable and pleasant when I saw her. Her blood pressure again is ranging anywhere from 150/80 to 160/90. Again she is asymptomatic. She was unable to take her chronic hypertensive medications due to abdominal pain and so will add hydralazine 10 mg every 2 hours as needed for blood pressures over 170/90. If this does not keep her blood pressure down under 160 for the most part, will readdress treatment for this. We will follow-up with her tomorrow, nurse will call me with any questions or concerns regarding her health at this time. - Assessment/Plan (1) Atrial fibrillation with RVR Problem: Acute (2) Pancreatitis Problem: Acute (3) Hypertension Problem: Chronic (4) GERD (gastroesophageal reflux disease) Problem: Chronic
[2018-05-24] MEDS: ENOXAPARIN SODIUM 40 MG/0.4 ML SYRG SC SCH ×2 (01:49→22:23)
[2018-05-24] MEDS: HYDROmorphone HCL 1 MG/ML DISP.SYRIN IV PRN ×2 (01:50→05:55)
[2018-05-24] MEDS ORDERED: hydrALAZINE HCL 20 MG/ML VIAL IV PRN (03:06)
[2018-05-24] MEDS ORDERED: NITROGLYCERIN 0.4 MG/TAB BTL SL ONE ×2 (05:46→05:49)
[2018-05-24 06:19] LABS: Troponin I Less than 0.017 ng/mL (0.00-0.10)
[2018-05-24 06:34] LABS: CK Total * 47 U/L (0-259); CKMB 0.6 ng/mL (0.0-9.0)
[2018-05-24] MEDS: ONDANSETRON HCL/PF 2 MG/ML VIAL IV PRN (07:32)
[2018-05-24] MEDS: NORMAL SALINE 1,000 ML IV PRN ×3 (08:02→20:13)
--- NOTE | 2018-05-24 08:43 | PN ---
Subjective - Date and Time Seen Date: 05/24/18 Time: 08:42 Subjective Narrative: Patient reports not really feeling well since she came home from her hip surgery last month. She was found to be in A. fib, and was concerned that she cannot tell if she is in A. fib. She does report increased weakness and reduced activity tolerance. Her epigastric pain is been present for a few days and worsened yesterday. She has no appetite. Her chest pain that was present semaj ier today was sharp, and is no longer present. Cardiac enzymes negative. She feels somewhat hungry right now. Objective - Review of Systems Generalized/Overall Review: Denies: Fever Respiratory: Denies: Shortness of Breath Cardiac: Reports: Chest Pain. Denies: Edema Abdominal: Reports: Nausea, Vomiting - once since admission, Abdominal Pain - Vitals Vitals: Last Vital Signs Temp 36.3 C 05/24/18 05:50 Pulse 75 05/24/18 05:50 Resp 18 05/24/18 05:50 BP 168/76 H 05/24/18 05:50 Pulse Ox 98 05/24/18 05:50 - Abnormal Lab Findings Abnormal Lab Findings: Abnormal Lab Results 05/23/18 05/23/18 05/23/18 Range/Units 17:00 17:00 17:00 WBC 12.5 H (4.0-10.5) K/mm3 MCHC 31.6 L (32-36) g/dl RDW 14.4 H (11.5-14.0) % Immature Gran # (Auto) 0.04 H (0.000-0.0310) K/mm3 Neutrophils # 8.6 H (1.3-6.0) K/mm3 PTT (Person) 19.6 L (24-32) Seconds D-Dimer (0.19-0.49) ug/mL Sodium 143 H (132-142) mmol/L Plasma Sodium 143 H (130-142) mmol/L Anion Gap 14.4 H (6.8-13.8) mmol/L BUN/Creatinine Ratio 28.8 H (9.0-21.6) GGT (4-104) U/L AST 261 H (0-48) U/L ALT 363 H (19-67) U/L Alkaline Phosphatase 314 H (50-170) U/L Amylase (25-115) U/L Lipase (73-393) U/L 05/23/18 05/23/18 Range/Units 17:00 18:35 WBC (4.0-10.5) K/mm3 MCHC (32-36) g/dl RDW (11.5-14.0) % Immature Gran # (Auto) (0.000-0.0310) K/mm3 Neutrophils # (1.3-6.0) K/mm3 PTT (Person) (24-32) Seconds D-Dimer 6.38 H (0.19-0.49) ug/mL Sodium (132-142) mmol/L Plasma Sodium (130-142) mmol/L Anion Gap (6.8-13.8) mmol/L BUN/Creatinine Ratio (9.0-21.6) GGT 1265 H (4-104) U/L AST (0-48) U/L ALT (19-67) U/L Alkaline Phosphatase (50-170) U/L Amylase 430 H (25-115) U/L Lipase 2830 H (73-393) U/L - Exam Constitutional: Present: Alert, Oriented x3, Obese Respiratory: Present: normal breath sounds Cardiovascular/Chest: Present: regular rate, rhythm Abdomen: Present: soft, tender Extremity: Absent: lower extremity edema Skin Exam: Present: normal color Eye contact: Present: cooperative Assessment/Plan - Problems/Diagnosis (1) Pancreatitis Problem: Acute Qualifiers: Chronicity: acute Narrative: She has never had these symptoms previously. Does not drink alcohol. Review of her medication list does not reveal classic pancreatitis inducing medications. Ultrasound done in the ER yesterday evening showed fatty hepatomegaly which is stable from prior CT scan. Mild extrahepatic biliary ductal dilation which is stable from prior exam. Previous exam was done in October 2016. Unknown source, and her pancreatitis may be idiopathic. Start clear liquid diet today, and will monitor for improvement in her abdominal pain. (2) Atrial fibrillation with RVR Problem: Resolved Narrative: We will continue metoprolol, may have to increase dose since she went into A. fib with RVR. Briefly discussed anticoagulation, and will ask her again later if she would prefer Eliquis or Coumadin. Will refer her to cardiology after discharge. She converted overnight, and is currently in sinus rhythm. (3) Status post total hip replacement, left Problem: Chronic Narrative: Her incision is healing well, however she has a large mass deep to the incision. Boundaries were marked this morning. If it worsens, will obtain US of the soft tissue.
[2018-05-24] MEDS: PANTOPRAZOLE SODIUM 40 MG TABLET.EC PO SCH (09:08)
[2018-05-24] MEDS: METOPROLOL TARTRATE 25 MG TABLET PO SCH ×2 (09:09→21:35)
[2018-05-24] MEDS: LOSARTAN POTASSIUM 50 MG TABLET PO SCH (09:09)
[2018-05-24] MEDS: SPIRONOLACTONE 25 MG TABLET PO SCH (09:09)
[2018-05-24] MEDS: ASPIRIN 325 MG TABLET.DR PO SCH (09:18)
[2018-05-24] MEDS: VENLAFAXINE HCL 150 MG CAP.SR.24H PO SCH (15:29)
[2018-05-24] MEDS: VENLAFAXINE HCL 37.5 MG CAP.SR.24H PO SCH (15:29)
[2018-05-24] MEDS ORDERED: HYDROcodone/ACETAMINOPHEN 1 EACH TABLET PO PRN (16:42)
[2018-05-24] MEDS: FELODIPINE 5 MG TAB.SR.24H PO SCH (21:36)
[2018-05-24] MEDS: ALPRAZolam 0.25 MG TABLET PO PRN (21:53)
[2018-05-25] MEDS: NORMAL SALINE 1,000 ML IV PRN ×3 (03:22→18:03)
--- NOTE | 2018-05-25 03:57 | PN ---
Progess Note - Interim Date: 05/25/18 Time: 03:55 Narrative: 05/25/18 03:55 Patient has been having episodes of afib overnight. Will increase metoprolol dose to 50 mg bid now.
[2018-05-25] MEDS: METOPROLOL TARTRATE 50 MG TABLET PO SCH ×2 (04:21→08:40)
[2018-05-25] MEDS: PANTOPRAZOLE SODIUM 40 MG TABLET.EC PO SCH (07:00)
[2018-05-25] MEDS: ONDANSETRON HCL/PF 2 MG/ML VIAL IV PRN (08:33)
[2018-05-25] MEDS: VENLAFAXINE HCL 150 MG CAP.SR.24H PO SCH (08:36)
[2018-05-25] MEDS: VENLAFAXINE HCL 37.5 MG CAP.SR.24H PO SCH (08:36)
[2018-05-25] MEDS: LOSARTAN POTASSIUM 50 MG TABLET PO SCH (08:36)
[2018-05-25] MEDS: ASPIRIN 325 MG TABLET.DR PO SCH (08:37)
[2018-05-25] MEDS: SPIRONOLACTONE 25 MG TABLET PO SCH (08:37)
[2018-05-25] MEDS ORDERED: METOPROLOL TARTRATE 50 MG TABLET PO SCH (09:00)
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
--- NOTE | 2018-05-25 10:22 | ECHO ---
This report is available in the EMR
[2018-05-25] MEDS ORDERED: NORMAL SALINE 1,000 ML IV ONE (12:36)
[2018-05-25] MEDS: ONDANSETRON HCL/PF 2 MG/ML VIAL IV SCH ×3 (13:15→19:59)
[2018-05-25] MEDS ORDERED: METOPROLOL TARTRATE 50 MG TABLET PO ONE (15:32)
[2018-05-25] MEDS ORDERED: DILTIAZEM HCL 5 MG/ML VIAL IV ONE (15:47)
[2018-05-25] MEDS: METOPROLOL TARTRATE 100 MG TABLET PO SCH (20:08)
[2018-05-25] MEDS: FELODIPINE 5 MG TAB.SR.24H PO SCH (20:08)
[2018-05-25] MEDS: ALPRAZolam 0.25 MG TABLET PO PRN (22:36)
[2018-05-25] MEDS: ENOXAPARIN SODIUM 40 MG/0.4 ML SYRG SC SCH (22:37)
[2018-05-26] MEDS: ONDANSETRON HCL/PF 2 MG/ML VIAL IV SCH ×6 (00:48→20:57)
[2018-05-26] MEDS: NORMAL SALINE 1,000 ML IV PRN ×4 (00:57→22:25)
[2018-05-26 05:54] LABS: Albumin * 2.6 gm/dl (3.4-5.0); Anion Gap 11.5 mmol/L (6.8-13.8); BUN/Creatinine Ratio 10.3 (9.0-21.6); Bilirubin, Total 0.3 mg/dL (0.0-1.1); Ca. Corrected For Albumin 9.6 mg/dL (8.4-10.2); Calcium * 8.8 mg/dL (7.9-10.9); Carbon Dioxide 29.8 mmol/L (24-32.6); Potassium 3.3 mmol/L (3.4-4.6); Total Protein 6.6 gm/dL (6.2-8.2)
--- NOTE | 2018-05-26 08:06 | PN ---
Subjective - Date and Time Seen Date: 05/26/18 Time: 08:06 Subjective Narrative: Patient was taking high doses of tylenol for her abdominal pain prior to admission. Patient reports no significant pain, however he still has significant nausea, and is unable to tolerate much p.o. intake. She is very concerned about her A fib. Her heart rate is still jumping up into the 140s and 50s with activity, despite 100 mg twice daily of metoprolol which was started yesterday. Objective - Review of Systems Generalized/Overall Review: Reports: Weakness Cardiac: Denies: Chest Pain, Edema Abdominal: Reports: Nausea - Vitals Vitals: Last Vital Signs Temp 37.2 C 05/26/18 03:00 Pulse 95 05/26/18 06:30 Resp 16 05/26/18 03:00 BP 137/75 05/26/18 03:00 Pulse Ox 97 05/26/18 03:00 - Abnormal Lab Findings Abnormal Lab Findings: Abnormal Lab Results 05/26/18 Range/Units 05:28 Sodium 143 H (132-142) mmol/L Plasma Sodium 143 H (130-142) mmol/L Potassium 3.3 L (3.4-4.6) mmol/L ALT 97 H (19-67) U/L Alkaline Phosphatase 187 H (50-170) U/L Albumin 2.6 L (3.4-5.0) gm/dl - Exam Constitutional: Present: Alert, Oriented x3 - appears uncomfortable, Morbidly obese Respiratory: Present: normal breath sounds Cardiovascular/Chest: Present: irregularly irregular Abdomen: Present: Normal bowel sounds, obese Extremity: Present: other - 20 X 10 cm mass of left lateral hip with ecchymosis. Posterior border is more posterior today than yesterday.. Absent: lower extremity edema Assessment/Plan - Problems/Diagnosis (1) Pancreatitis Problem: Acute Qualifiers: Chronicity: acute Narrative: Patient's lipase has resolved, and is down to 247. AST and alk phos still elevated at 93 and 187, respectively. Since she is still having significant marcia sea, will obtain MRCP. Her admission ultrasound was unchanged from prior done in October 2016, but since she is not clinically improving, I have concern for stone. Unable to tolerate much p.o. intake. Discussed case with Dr. Solomon, who has been consulted. If she were to require an ERCP, will have to transfer to another facility. (2) Atrial fibrillation with RVR Problem: Chronic Narrative: Case discussed with cardiology and RSV yesterday. It is suggested that her A. fib may be secondary to the stress from pancreatitis. She had an episode of A. fib while in recovery for hip replacement last month. Metoprolol tartrate was increased to 100 mg twice daily yesterday, however she still has heart rates up to 140s and 150s. Will add 30 mg Cardizem 3 times daily. Echocardiogram showed some LVH and possible diastolic dysfunction. (3) Status post total hip replacement, left Problem: Chronic Narrative: She has a mass underlying the distal portion of her left incision. The incision itself is healing well. The mass appeared to be improving yesterday, however may have worsened today. The mass is outside the marked posterior boundary today. Will obtain a soft tissue ultrasound. She reports the area is not painful.
[2018-05-26] MEDS: ASPIRIN 325 MG TABLET.DR PO SCH (08:50)
[2018-05-26] MEDS: LOSARTAN POTASSIUM 50 MG TABLET PO SCH (08:50)
[2018-05-26] MEDS: VENLAFAXINE HCL 37.5 MG CAP.SR.24H PO SCH (08:51)
[2018-05-26] MEDS: VENLAFAXINE HCL 150 MG CAP.SR.24H PO SCH (08:52)
[2018-05-26] MEDS: METOPROLOL TARTRATE 100 MG TABLET PO SCH ×2 (08:52→20:57)
[2018-05-26] MEDS: DILTIAZEM HCL 30 MG TABLET PO SCH ×2 (08:52→16:28)
[2018-05-26] MEDS: SPIRONOLACTONE 25 MG TABLET PO SCH (08:53)
[2018-05-26] MEDS: PANTOPRAZOLE SODIUM 40 MG TABLET.EC PO SCH (08:55)
--- NOTE | 2018-05-26 11:04 | CONS ---
[facility] - General Date of Service: 05/26/18 Source: patient, family, RN/, RN notes reviewed, old records Exam Limitations: no limitations - History of Present Illness Initial Comments: On 05/22/2018 she had the onset of severe substernal discomfort "like someone sitting on my chest" and pain across her upper abdomen. In the past couple months she has been having episodes of "indigestion" like this but they were relieved by belching or taking Xanax or Nexium. This time nothing worked. She initially thought it might be her gallbladder because her mother had similar belching symptoms with her gallbladder disease (her brother is also had his gallbladder removed). She is also been having some heartburn, reflux, and intermittent dysphagia for solid foods like bread. She had a hip replacement in April and was on a lot of new medications including aspirin and narcotics which she thought aggravated this. On Wednesday she also had 2 liquid black bowel movements. She presented to the emergency room where initial evaluation focused on ruling out PE and managing A. fib with RVR. She was also found to have an elevated amylase and lipase and liver function studies. Gallbladder ultrasound revealed large common bile duct. CT angiogram was negative for PE. The comment on the visualized portions of pancreas was that it was normal. Her amylase and lipase have normalized. Her liver function studies have come do wn significantly. She continues to complain of heavy substernal discomfort and nausea. She has not moved her bowels since Wednesday but has passed some gas. She has had some pain under her hip incision and has been seeing [facility] and [facility] for this. An ultrasound is being obtained today. Timing/Duration: 1 week Severity: severe Modifying Factors - (Worsens): Reports: eating Modifying Factors - (Improves): Reports: medication Associated Symptoms: chest pain, loss of appetite, nausea Allergies/Adverse Reactions: Allergies No Known Allergies Allergy (Verified 05/23/18 23:55) Home Medications: Home Medications Medication Instructions Recorded Last Taken Felodipine [Felodipine ER] 10 mg PO HS 08/14/14 Unknown Venlafaxine HCl [Effexor Xr] 75 mg PO DAILY 08/14/14 Unknown irbesartan 300 mg tablet 300 mg PO DAILY 02/24/18 04/18/18 07:00 multivitamin tablet 1 tab PO DAILY 02/24/18 Unknown spironolactone 25 mg tablet 25 mg PO DAILY 02/24/18 Unknown venlafaxine ER 150 mg 150 mg PO DAILY 02/24/18 Unknown capsule,extended release 24 hr esomeprazole magnesium 40 mg 40 mg PO DAILY #90 cap 04/12/18 04/18/18 07:00 capsule,delayed release Mulga-3 Fatty Acids/Fish Oil [Fish 1 ea PO DAILY 04/18/18 Unknown Oil 1,000 mg Capsule] Metoprolol Tartrate [Lopressor] 25 mg PO BID #60 tab 04/19/18 Unknown Alprazolam [Xanax] 0.25 mg PO PRN PRN 05/23/18 Unknown Aspirin 325 mg PO QAM 05/23/18 Unknown Procedures Closure of skin and subcutaneous tissue of other sites (08/14/14) Introduction of Serum, Toxoid and Vaccine into Muscle, Percutaneous Approach (04/18/18) Replacement of Left Hip Joint with Ceramic on Polyethylene Synthetic Substitute, Cemented, Open Approach (04/18/18) Replacement of Left Knee Joint with Synthetic Substitute, Cemented, Open Approa ch (03/18/15) Revision of Synthetic Substitute in Left Knee Joint, External Approach (05/22/15) Total knee replacement (11/11/05) Medications - Medications Current Medications: Current Medications Alprazolam (Xanax) 0.25 mg PO DAILY PRN PRN Reason: Anxiety Stop: 06/23/18 08:19 Last Admin: 05/25/18 22:36 Dose: 0.25 mg Documented by: Aspirin (Aspirin Enteric Coated) 325 mg PO QAM [facility] Stop: 06/23/18 09:01 Last Admin: 05/26/18 08:50 Dose: 325 mg Documented by: Diltiazem HCl (Cardizem) 30 mg PO Q8H [facility] Stop: 06/25/18 09:01 Last Admin: 05/26/18 08:52 Dose: 30 mg Documented by: Enoxaparin Sodium (Lovenox) 40 mg SC DAILY@2200 [facility] Stop: 06/23/18 01:01 Last Admin: 05/25/18 22:37 Dose: 40 mg Documented by: Felodipine ([place]) 10 mg PO HS [facility] Stop: 06/23/18 21:01 Last Admin: 05/25/18 20:08 Dose: 10 mg Documented by: Hydralazine HCl (Apresoline) 10 mg IV Q2H PRN PRN Reason: Blood Pressure Stop: 06/23/18 03:07 Last Admin: 05/24/18 05:32 Dose: 10 mg Documented by: Sodium Chloride (Sodium Chloride 0.9%) 1,000 mls @ 150 mls/hr IV .Q6H40M PRN PRN Reason: HYDRATION Stop: 06/23/18 06:23 Last Admin: 05/26/18 07:54 Dose: 150 mls/hr Documented by: Losartan Potassium (Cozaar) 100 mg PO DAILY [facility] Stop: 06/23/18 09:01 Last Admin: 05/26/18 08:50 Dose: 100 mg Documented by: Metoprolol Tartrate (Lopressor) 100 mg PO BID [facility] Stop: 06/24/18 21:01 Last Admin: 05/26/18 08:52 Dose: 100 mg Documented by: Ondansetron HCl (Zofran) 4 mg IV Q4H [facility] Stop: 06/24/18 12:46 Last Admin: 05/26/18 08:53 Dose: 4 mg Documented by: Pantoprazole Sodium (Protonix) 40 mg PO DAILY@0700 [facility] Stop: 06/23/18 09:01 Last Admin: 05/26/18 08:55 Dose: 40 mg Documented by: Spironolactone (Aldactone) 25 mg PO DAILY [facility] Stop: 06/23/18 09:01 Last Admin: 05/26/18 08:53 Dose: 25 mg Documented by: Venlafaxine HCl (Effexor Xr) 75 mg PO DAILY [facility] Stop: 06/23/18 09:01 Last Admin: 05/26/18 08:51 Dose: 75 mg Documented by: Venlafaxine HCl (Effexor Xr) 150 mg PO DAILY [facility] Stop: 06/23/18 09:01 Last Admin: 05/26/18 08:52 Dose: 150 mg Documented by: Review of Systems - Review of Systems Generalized/Overall Review: Absent: Chills, Fever EENTM: Present: No Symptoms Reported Respiratory: Present: No Symptoms Reported Cardiac: Present: Chest Pain, Palpitations Abdominal: Present: Nausea, Abdominal Pain Genitourinary: Present: No Symptoms Reported Musculoskeletal: Present: Other - Pain and swelling in her hip incision Neurological: Present: No Symptoms Reported Skin: Present: No Symptoms Reported Endocrine: Present: No Symptoms Reported Physical Examination - Exam Vital Signs: Vital Signs - Last Taken Temp 36.5 C 05/26/18 09:01 Pulse 84 05/26/18 09:01 Resp 18 05/26/18 09:01 BP 141/62 05/26/18 09:01 Pulse Ox 93 05/26/18 09:01 O2 Oxygen Delivery Method Room Air Constitutional: Present: Alert, Oriented x3, Cooperative, Obese ENT Exam: Present: normal ENT inspection Eye Exam: bilateral eye: normal inspection Neck: Present: full range of motion, other - Short thick neck Breasts: Present: Exam deferred Respiratory: Present: no respiratory distress, no accessory muscle use Cardiovascular/Chest: Present: regular rate, rhythm Abdomen: Present: soft, obese, other - Tender across the upper abdomen but no percussion tenderness. Tympany to percussion over the stomach /Rectal: Present: Exam deferred Extremity: Present: no calf tenderness Skin Exam: Present: normal color Neurologic: Present: four slide operator II-XII nml as tested, no motor/sensory deficits Appearance: Present: appropriate appearance, no memory impairment Eye contact: Present: cooperative, good eye contact, normal speech Thoughts: Present: normal thought pattern - Results and Findings: Lab/Microbiology results last 24 hrs: Abnormal/Pending Laboratory Last 24 HRS 05/26/18 05:28 Sodium 143 H Plasma Sodium 143 H Potassium 3.3 L ALT 97 H Alkaline Phosphatase 187 H Albumin 2.6 L - Assessments/Findings (1) Pancreatitis Diagnosis(s): The elevated liver function studies and amylase/lipase have largely resolved. There are no stones on gallbladder ultrasound however the common bile duct is enlarged. Those portions of the pancreas visualized on the CT angiogram appeared normal. Pamphlets on gallbladder disease and gallbladder surgery and ERCP were used to explain the nature of gallbladder disease and pancreatitis to the patient. Explained that MRCP might help if there is a stone still in the common bile duct. That study has been ordered for later today. Discussed the case with Dr. Parks and will continue to follow the patient Problem: Acute Qualifiers: Chronicity: acute
--- NOTE | 2018-05-26 17:24 | PN ---
Alejandro Note - Interim Date: 05/26/18 Time: 17:22 Narrative: 05/26/18 17:23 Discussed anticoagulation options with patient, and she would like to try coumadin. Can do once or twice weekly checks until she is within range. Will start at 5 mg daily, and recheck in 2 days. Will have her follow up in the coumadin clinic after DC. Eliquis would have been $400 the first month.
[2018-05-26] MEDS ORDERED: DILTIAZEM HCL 30 MG TABLET PO ONE (17:30)
[2018-05-26] MEDS: FELODIPINE 5 MG TAB.SR.24H PO SCH (20:57)
[2018-05-26] MEDS: ALPRAZolam 0.25 MG TABLET PO PRN (20:57)
[2018-05-26] MEDS: ENOXAPARIN SODIUM 40 MG/0.4 ML SYRG SC SCH (21:01)
[2018-05-27] MEDS: DILTIAZEM HCL 60 MG TABLET PO SCH ×3 (01:23→16:59)
[2018-05-27] MEDS: ONDANSETRON HCL/PF 2 MG/ML VIAL IV SCH ×6 (01:33→21:32)
[2018-05-27] MEDS: NORMAL SALINE 1,000 ML IV PRN (05:08)
[2018-05-27] MEDS: PANTOPRAZOLE SODIUM 40 MG TABLET.EC PO SCH (07:08)
[2018-05-27] MEDS ORDERED: PANTOPRAZOLE SODIUM 40 MG in NORMAL SALINE 100 ML IV ONE (07:30)
--- NOTE | 2018-05-27 07:40 | PN ---
Subjective - Date and Time Seen Date: 05/27/18 Time: 07:38 Subjective Narrative: She started feeling better yesterday afternoon. Her nausea has improved, and she asked for regular diet. Her urination has increased. Is able to ambulate in the halls. She has not used the [place] that was prescribed on the . Objective - Review of Systems Generalized/Overall Review: Denies: Fever Respiratory: Denies: Shortness of Breath Cardiac: Denies: Edema Abdominal: Reports: Nausea. Denies: Vomiting, Diarrhea Genitourinary Symptoms: Reports: Frequency - Vitals Vitals: Last Vital Signs Temp 36.8 C 05/27/18 07:00 Pulse 98 05/27/18 07:00 Resp 18 05/27/18 07:00 BP 142/80 05/27/18 07:00 Pulse Ox 96 05/27/18 07:00 - Exam Constitutional: Present: Alert, No distress, Morbidly obese Respiratory: Present: normal breath sounds Cardiovascular/Chest: Present: irregularly irregular Abdomen: Present: obese, tender - epigastric, mild Extremity: Absent: lower extremity edema Neurologic: Present: normal mood/affect Assessment/Plan - Problems/Diagnosis (1) Pancreatitis Problem: Acute Qualifiers: Chronicity: acute Narrative: Her appetite and nausea have improved. She has not used pain medicine in several days, and will discontinue [place].. Advance to low fat diet. DC IV fluids. Lipase was checked yesterday and resolved. Due to her ongoing nausea, MRCP was done yesterday, which did not show signs of choledocholithiasis. She still has indigestion, and will give her 40 mg IV pantoprazole today. Anticipate discharge tomorrow. (2) Atrial fibrillation with RVR Problem: Chronic Narrative: The first few days of admission, she was alternating back and forth between si nus and A. fib. Her situation was discussed with cardiology in [place], and Cardizem was added. Her heart rate is largely controlled, and jumps up to the 150s with activity, but resumes to the 90s quickly. We will continue 100 mg twice daily of metoprolol, and 60 mg 3 times daily of Cardizem. We will need to ensure that this is covered by her insurance, because this combination will be her rate control after DC. She has decided to do Coumadin for anticoagulation. She has been given Lovenox daily, and 5 mg Coumadin started last night. INR pending for the a.m. We will have her follow-up with cardiology after discharge. (3) Status post total hip replacement, left Problem: Chronic Narrative: She has a mass of her left hip, deep to the inferior portion of her incision. The incision itself is healing well. US was done yesterday, which showed a complex fluid collection. Discussed with ortho, and since there is no active drainage, no surgical intervention needed. This will likely resolve on its own. (4) Hypertension Problem: Chronic Narrative: Blood pressure has been largely controlled, with many systolic readings in the 140s. She has had some systolic readings in the 110's. Discussed home meds. She admits to not taking spironolactone frequently. With the new addition of metoprolol and cardizem, will DC spironolactone. May also be able to DC felodipine.
[2018-05-27 08:01] LABS: Prothrombin Time (Patient) 10.7 Seconds (9.0-11.0)
[2018-05-27 08:03] LABS: INR 1.07 INR (0.90-1.10)
[2018-05-27] MEDS: VENLAFAXINE HCL 37.5 MG CAP.SR.24H PO SCH (09:39)
[2018-05-27] MEDS: LOSARTAN POTASSIUM 50 MG TABLET PO SCH (09:39)
[2018-05-27] MEDS: ASPIRIN 325 MG TABLET.DR PO SCH (09:39)
[2018-05-27] MEDS: VENLAFAXINE HCL 150 MG CAP.SR.24H PO SCH (09:40)
[2018-05-27] MEDS: METOPROLOL TARTRATE 100 MG TABLET PO SCH ×2 (09:40→21:22)
[2018-05-27] MEDS ORDERED: WARFARIN SODIUM 5 MG TABLET PO SCH (17:00)
[2018-05-27] MEDS: FELODIPINE 5 MG TAB.SR.24H PO SCH (21:21)
[2018-05-27] MEDS: ENOXAPARIN SODIUM 40 MG/0.4 ML SYRG SC SCH (21:22)
[2018-05-27] MEDS: ALPRAZolam 0.25 MG TABLET PO PRN (21:32)
[2018-05-28] MEDS: ONDANSETRON HCL/PF 2 MG/ML VIAL IV SCH ×3 (01:40→08:38)
[2018-05-28] MEDS: DILTIAZEM HCL 60 MG TABLET PO SCH ×2 (01:42→08:39)
[2018-05-28] MEDS: PANTOPRAZOLE SODIUM 40 MG TABLET.EC PO SCH (07:35)
[2018-05-28 08:02] LABS: Prothrombin Time (Patient) 11.4 Seconds (9.0-11.0)
[2018-05-28 08:05] LABS: INR 1.14 INR (0.90-1.10)
--- NOTE | 2018-05-28 08:22 | DS ---
(1) Pancreatitis Problem: Resolved Qualifiers: Chronicity: acute (2) Atrial fibrillation with RVR Problem: Chronic (3) Status post total hip replacement, left Problem: Chronic (4) Hypertension Problem: Chronic Description of Stay: Patient with past medical history of hypertension and recent left hip replacement presented to the ED after having several weeks of epigastric pressure. She had not really felt well since she left the hospital for hip replacement. While in recovery for that surgery, she had 2 episodes of A. fib. On arrival to the ED, she was found to be in A. fib with RVR. She also was positive for pancreatitis. She initially was given an IV Cardizem push, and then started on a Cardizem drip and transition back to p.o. meds for rate control. The first few days of admission, she was flipping back and forth between A. fib and normal sinus. She had been on 25 mg of metoprolol bid prior to admission, and this was gradually increased to 100 mg twice daily. Her case was discussed with the on-call conveyor mechanic in [place], and 30 mg of Cardizem 3 times daily were added. Her heart rate continued to elevate to the 150s and 160s, so her dose was increased to 60 mg p.o. tid. She opted for Coumadin for anticoagulation. On the day of discharge, her INR was only 1.14, so she will be discharged with Lovenox and 5 mg Coumadin daily. TSH normal, echo showed some LVH and possible diastolic dysfunction. Her pancreatitis primarily manifested as nausea. She does not drink alcohol, an ultrasound was not changed from previous. Her medications may have been the source of her pancreatitis, however her medicines were not typically known for causing pancreatitis. She gradually improved over several days. She only used pain medication the first 24 hours of her stay. Approximately day 3 of hospitalization, when the nausea persisted, additional imaging was done and surgery was consulted. MRCP was negative. She was able to tolerate solid foods. She did however have some diarrhea after starting solid foods. This was somewhat better on the day of discharge. She felt like pantoprazole was more helpful than her home esomeprazole for reflux, and will change to pantorazole after DC. She had a large left lateral mass deep to her incision. The incision was healing very well. When the mass did not change significantly, an ultrasound was done, which showed a complex fluid collection. Her case was discussed with ortho, and no surgical intervention needed. The mass will likely resolve on its own. Since Cardizem and metoprolol added to her regimen, spironolactone was DC'd. She admits to not taking it routinely prior to admission. Procedures Performed: none Results and Findings: Lab Pending Results 05/23/18 17:00: WBC 12.5 H, RBC 4.80, Hgb 13.0, Hct 41.2, MCV 85.8, MCH 27.1, MCHC 31.6 L, RDW 14.4 H, Plt Count 357, MPV 9.8, Immature Gran % (Auto) 0.30, Immature Gran # (Auto) 0.04 H, Neutrophils % 68.6, Lymphocytes % 24.7, Monocytes % 4.9, Eosinophils % 0.9, Basophils % 0.6, Nucleated RBC % 0.0, Neutrophils # 8.6 H, Lymphocytes # 3.09, Monocytes # 0.6, Eosinophils # 0.1, Absolute Basophils 0.1 05/23/18 17:00: PT 10.1, INR (Anticoag Therapy) 1.01, PTT ([place]) 19.6 L 05/23/18 17:00: Sodium 143 H, Plasma Sodium 143 H, Potassium 3.5, Chloride 102, Carbon Dioxide 30.1, Anion Gap 14.4 H, BUN 17, Creatinine 0.59, Est GFR (Non-Af Amer) 108 D, BUN/Creatinine Ratio 28.8 H, Random Glucose 107, Calcium 9.8, Calcium Adj for Albumin 9.9, Total Bilirubin 0.4, AST 261 H, ALT 363 H, Alkaline Phosphatase 314 H, Troponin I Less than 0.017, Total Protein 7.2, Albumin 3.5 05/23/18 17:00: D-Dimer 6.38 H 05/23/18 18:35: GGT 1265 H, B-Natriuretic Peptide 139, Amylase 430 H, Lipase 2830 H 05/24/18 05:57: Creatine Kinase 47, CK-MB (CK-2) 0.6, CK-MB (CK-2) Rel Index 1.3, Troponin I Less than 0.017 05/24/18 05:57: TSH 3.444 05/26/18 05:28: Sodium 143 H, Plasma Sodium 143 H, Potassium 3.3 L, Chloride 105, Carbon Dioxide 29.8, Anion Gap 11.5, BUN 7 D, Creatinine 0.68, Est GFR (Non-Af Amer) 92, BUN/Creatinine Ratio 10.3, Random Glucose 94, Calcium 8.8, Calcium Adj for Albumin 9.6, Total Bilirubin 0.3, AST 23, ALT 97 H, Alkaline Phosphatase 187 H, Total Protein 6.6, Albumin 2.6 L, Lipase 247 05/27/18 07:45: PT 10.7, INR (Anticoag Therapy) 1.07 05/28/18 07:34: PT 11.4 H, INR (Anticoag Therapy) 1.14 H Discharge Location: Home Disposition: Home self-care Condition: Good Discharge Activity: Activity as tolerated Discharge Diet: Low fat/chol Referrals: Jessica Parks DO [Primary Care Provider] - Additional Patient Instructions (free text): -TCM appt made with Dr. Parks May 30, at 9:30. Refer to Cardiology that comes to [facility] at discharge for a-fib. Prescriptions (Any new or edited meds): Diltiazem HCl [Cardizem] 60 mg PO Q8H #90 tablet Enoxaparin Sodium [Lovenox] 40 mg SC DAILY@2200 5 Days #5 disp.syrin Metoprolol Tartrate [Lopressor] 100 mg PO BID #60 tablet Pantoprazole Sodium [Protonix] 40 mg PO DAILY@0700 #90 tablet. Warfarin Sodium [Coumadin] 5 mg PO DAILY@1700 #30 tablet Complete Home Medications List: Complete Home Medication List: Felodipine [Felodipine ER] 10 mg PO HS 08/14/14 Venlafaxine HCl [Effexor Xr] 75 mg PO DAILY 08/14/14 irbesartan 300 mg tablet 300 mg PO DAILY 02/24/18 multivitamin tablet 1 tab PO DAILY 02/24/18 venlafaxine ER 150 mg capsule,extended release 24 hr 150 mg PO DAILY 02/24/18 [place]-3 Fatty Acids/Fish Oil [Fish Oil 1,000 mg Capsule] 1 ea PO DAILY 04/18/18 Alprazolam [Xanax] 0.25 mg PO PRN PRN 05/23/18 Diltiazem HCl [Cardizem] 60 mg PO Q8H #90 tablet 05/28/18 Enoxaparin Sodium [Lovenox] 40 mg SC DAILY@2200 5 Days #5 disp.syrin 05/28/18 Metoprolol Tartrate [Lopressor] 100 mg PO BID #60 tablet 05/28/18 Pantoprazole Sodium [Protonix] 40 mg PO DAILY@0700 #90 tablet. 05/28/18 Warfarin Sodium [Coumadin] 5 mg PO DAILY@1700 #30 tablet 05/28/18 Physical Exam - Physical Exam General Appearance: Present: no apparent distress Respiratory: Present: normal breath sounds Cardiovascular/Chest: Present: irregularly irregular Gastrointestinal/Abdominal: Present: normal bowel sounds, nontender Extremity Exam: Present: no edema
[2018-05-28] MEDS: VENLAFAXINE HCL 37.5 MG CAP.SR.24H PO SCH (08:38)
[2018-05-28] MEDS: VENLAFAXINE HCL 150 MG CAP.SR.24H PO SCH (08:39)
[2018-05-28] MEDS: LOSARTAN POTASSIUM 50 MG TABLET PO SCH (08:39)
[2018-05-28] MEDS: METOPROLOL TARTRATE 100 MG TABLET PO SCH (08:39)
[2018-05-28 12:55] VITALS: BP 148/89
== END 2018-05-28 12:50 | disposition home or self-care (01) | DRG 308 ==
LOC: ER 15:42 → SCU 22:00 → MS 05-24 10:24
PROVIDERS: ADMIT Family Medicine; ATTEND Family Medicine
DX: I48.2 Chronic atrial fibrillation; Z79.82 Long term (current) use of aspirin; M25.852 Other specified joint disorders, left hip; Z87.891 Personal history of nicotine dependence; M19.90 Unspecified osteoarthritis, unspecified site; Z96.653 Presence of artificial knee joint, bilateral; G47.33 Obstructive sleep apnea (adult) (pediatric); K21.9 Gastro-esophageal reflux disease without esophagitis; Z68.41 Body mass index [BMI] 40.0-44.9, adult; Z96.642 Presence of left artificial hip joint; K76.0 Fatty (change of) liver, not elsewhere classified; M51.36 Other intervertebral disc degeneration, lumbar region; E66.01 Morbid (severe) obesity due to excess calories; F41.9 Anxiety disorder, unspecified; Z82.49 Family history of ischemic heart disease and other diseases of the circulatory system; I10 Essential (primary) hypertension; F32.9 Major depressive disorder, single episode, unspecified; S70.02XA Contusion of left hip, initial encounter; K85.90 Acute pancreatitis without necrosis or infection, unspecified
CPT/HCPCS: 36415; 71020; 71046; 71275; 74181; 76700; 76882; 80053; 82150; 82550; 82553; 82977; 83519; 83690; 83880; 84443; 84484; 85025; 85379; 85610; 85730; 93005; 93306; 94660; 96374; 96375; 96376; 99284; J2405